=== PATIENT | male | born 1955 | race Caucasian/White ===

== ENCOUNTER 2020-07-31 09:19 | Emergency (ER) | payer BC, OTHER ==
[~2020-07-31] VITALS: Ht 170.2 cm; Wt 84.4 kg
[2020-07-31] MEDS ORDERED: TRILIPIX135 MG PO (09:40)
[2020-07-31] MEDS ORDERED: ADVAIR 250-501 EACH INH (09:40)
[2020-07-31] MEDS ORDERED: SINGULAIR 10 MG10 M1 PO (09:40)
[2020-07-31] MEDS ORDERED: HCTZ PO (09:41)
[2020-07-31] MEDS ORDERED: LISINOPRIL10 MG PO (09:41)
[2020-07-31] MEDS ORDERED: ANTI ANXIETY PO (09:43)
[2020-07-31 09:55] LABS: ABSOLUTE NEUTROPHILS 9.3 thou/uL (1.4-8.2); BASOPHILS 0.1 % (0.0-2.0); EOSINOPHILS 1.1 % (0.0-3.0); HEMATOCRIT 44.3 % (42.0-52.0); LYMPHOCYTES 1.9 % (24.0-44.0); MCH 30.1 pg (26.0-34.0); MCHC 33.8 g/dL (28.0-37.0); MCV 89.1 fL (80.0-100.0); MONOCYTES 4.7 % (1.0-8.0); PLATELET COUNT 300 thou/uL (150-400); POLYS 92.2 % (36.0-66.0); RBC 4.97 mil/uL (4.50-6.00)
[2020-07-31 09:59] LABS: ANION GAP 13 mmol/L (7-16); BUN 25 mg/dL (7-18); CALCIUM 9.1 mg/dL (8.5-10.1); CHLORIDE 102 mmol/L (98-107); CO2 24 mmol/L (21-32); CREATININE 1.6 mg/dL (0.7-1.3); GLUCOSE 119 mg/dL (74-106); POTASSIUM 4.1 mmol/L (3.5-5.1); SODIUM 139 mmol/L (136-145)
[2020-07-31 10:10] LABS: ALBUMIN 3.8 g/dL (3.4-5.0); DIRECT BILIRUBIN < 0.1 mg/dL (<0.1-0.2); LIPASE 105 U/L (73-393); SGOT 35 U/L (15-37); SGPT 38 U/L (16-63); TOTAL BILIRUBIN 0.4 mg/dL (0.2-1.0); TOTAL PROTEIN 8.4 g/dL (6.4-8.2); TROPONIN-I <0.06 ng/mL (<0.06)
[2020-07-31] MEDS ORDERED: ZOFRAN ODT4 MG PO ×2 (13:36→14:17)
[2020-07-31] MEDS ORDERED: PREDNISONE50 MG PO ×2 (13:36→14:17)
[2020-07-31 14:38] VITALS: BP 119/73
--- NOTE | 2020-08-01 09:04 | EKG ---
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
--- NOTE | 2020-08-01 09:04 | EKG ---
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
== END 2020-07-31 14:39 | disposition home or self-care (01) ==
LOC: ER 09:19
PROVIDERS: Emergency Medicine
DX: J44.1 Chronic obstructive pulmonary disease with (acute) exacerbation (principal); Z20.822 Contact with and (suspected) exposure to COVID-19; R11.2 Nausea with vomiting, unspecified; R10.84 Generalized abdominal pain; E78.00 Pure hypercholesterolemia, unspecified; Z79.899 Other long term (current) drug therapy